=== PATIENT | female | born 1970 | race Caucasian/White ===

== ENCOUNTER 2019-11-18 15:46 | Emergency (ER) | payer OTHER, MEDICAID ==
[~2019-11-18] VITALS: Ht 170.2 cm; Wt 77.1 kg
[~2019-11-18 15:46] MED LIST: BACL20TA PO; ESOM40CA39 PO; GLIM4TAB PO; IBUP800T24 PO; INSU70IN3 SC; LEV50T PO; LEVEMIR SC; PREG150C PO; PREG200C19 PO; SIMV-8 PO; SITA100T7 PO; TAPE100T24 PO; TEMA30CA5 PO
[2019-11-18 15:53] VITALS: BP 166/82
[2019-11-18] MEDS ORDERED: HYDROcodone-ACET 5/325MG TAB PO ONE ×2 (16:30→17:15)
== END 2019-11-18 17:26 | disposition home or self-care (01) ==
LOC: ER 15:46 → EDBD 15:46 → ER 17:26
DX: S82.302A Unspecified fracture of lower end of left tibia, initial encounter for closed fracture (principal); S83.91XA Sprain of unspecified site of right knee, initial encounter; E11.9 Type 2 diabetes mellitus without complications; E78.5 Hyperlipidemia, unspecified; F17.210 Nicotine dependence, cigarettes, uncomplicated; Z90.49 Acquired absence of other specified parts of digestive tract; Z90.710 Acquired absence of both cervix and uterus; Z88.6 Allergy status to analgesic agent; X50.1XXA Overexertion from prolonged static or awkward postures, initial encounter; Y93.89 Activity, other specified; Y92.89 Other specified places as the place of occurrence of the external cause; Y99.8 Other external cause status
CPT/HCPCS: 29515; 73562; 73610